=== PATIENT | male | born 1995 | race Caucasian/White ===

== ENCOUNTER 2020-09-30 21:40 | Emergency (ER) | payer OTHER ==
[2020-09-30 22:56] LABS: BASOPHIL 0.7 % (0-2); EOSINOPHIL 1.5 % (0-5); HCT 40.6 % (42.0-52.0); HGB 14.2 g/dl (13.2-18.0); LYMPHOCYTE 19.1 % (15-48); MCH 29.4 pg (25.0-31.0); MCV 84.1 fL (78.0-100.0); MPV 9.6 fL (6.0-9.5); NEUTROPHIL 66.4 % (41-80); NRBC 0; PLT 261 K/uL (150-400); RBC 4.83 M/uL (4.70-6.00); WBC 7.3 K/uL (4.0-10.5)
[2020-09-30 23:12] LABS: CREATININE 0.7 mg/dL (0.67-1.17); POTASSIUM 3.6 mmol/L (3.5-5.1)
== END 2020-09-30 23:45 | disposition home or self-care (01) ==
LOC: FER 21:40
PROVIDERS: Emergency Medicine
DX: F11.23 Opioid dependence with withdrawal (principal); F17.200 Nicotine dependence, unspecified, uncomplicated
CPT/HCPCS: 36415; 80048; 85025; 99283